=== PATIENT | female | born 1990 | race Caucasian/White ===

== ENCOUNTER 2017-01-26 07:09 | Inpatient (IN) | payer OTHER ==
[~2017-01-26] VITALS: Ht 162.6 cm; Wt 72.7 kg
[2017-01-26 08:05] LABS: BASOPHIL % 0.3 % (0-2); PLATELET COUNT 299 x10^3mcL (130-400); RED CELL DISTRIBUTION WIDTH 12.2 % (11.5-14.5)
[2017-01-26 08:31] LABS: CALCIUM 9.3 mg/dL (8.5-10.1); CARBON DIOXIDE 26.8 mmol/L (21-32); CHLORIDE SERUM 100 mmol/L (98-107); CREATININE SERUM 0.8 mg/dL (0.6-1.0); GFR1 > 60 mL/min; GLUCOSE SERUM 86 mg/dL (74-106); POTASSIUM SERUM 3.8 mmol/L (3.5-5.1); SODIUM SERUM 137 mmol/L (136-145)
[2017-01-26 08:36] LABS: ALBUMIN 4.4 g/dL (3.4-5.0); ALKALINE PHOSPHATASE 40 U/L (46-116); ALT/SGPT 23 U/L (14-59); AST/SGOT 17 U/L (15-37); BILIRUBIN TOTAL 0.53 mg/dL (0.20-1.00)
[2017-01-26 08:39] LABS: TOTAL PROTEIN, SERUM 8.5 g/dL (6.4-8.2)
[2017-01-26 11:05] VITALS: BP 124/73
[2017-01-26 11:07] VITALS: BP 124/73
[2017-01-26 11:40] LABS: MAGNESIUM 2.1 mg/dL (1.8-2.4); PHOSPHOROUS 3.3 mg/dL (2.5-4.9)
[2017-01-26 11:51] VITALS: Ht 162.6 cm; Wt 72.7 kg
[2017-01-26 11:52] LABS: FREE T4 1.1 ng/dL (0.76-1.46); FREE THYROXINE INDEX 3.3 ug/dL (1.4-4.5); T4(THYROXINE) 9.7 ug/dL (4.7-13.3)
[2017-01-26 11:56] LABS: T3 TOTAL 1.35 ng/mL
[2017-01-26 12:37] LABS: microscopic required? NO
[2017-01-26 12:53] LABS: urine erythrocyte NEGATIVE (NEGATIVE)
[2017-01-26 13:15] LABS: AMPHETAMINE QUAL UR NONE DETECTED (NEG <=1000)
[2017-01-26 13:35] VITALS: BP 132/71
[2017-01-26 16:18] VITALS: BP 126/81
[2017-01-26 21:50] VITALS: BP 109/76
[2017-01-27 05:57] VITALS: BP 116/82
[2017-01-27 07:50] VITALS: BP 109/62
[2017-01-27 12:30] VITALS: BP 117/81
[2017-01-27 17:00] VITALS: BP 11/64; BP 111/64
[2017-01-27 21:17] VITALS: BP 112/80
[2017-01-28 05:46] VITALS: BP 104/55
[2017-01-28 06:16] LABS: BASOPHIL % 0.4 % (0-2); PLATELET COUNT 250 x10^3mcL (130-400); RED CELL DISTRIBUTION WIDTH 12.7 % (11.5-14.5)
[2017-01-28 06:26] LABS: CALCIUM 8.2 mg/dL (8.5-10.1); CARBON DIOXIDE 28.8 mmol/L (21-32); CHLORIDE SERUM 107 mmol/L (98-107); CREATININE SERUM 0.6 mg/dL (0.6-1.0); GFR1 > 60 mL/min; GLUCOSE SERUM 93 mg/dL (74-106); POTASSIUM SERUM 3.8 mmol/L (3.5-5.1); SODIUM SERUM 141 mmol/L (136-145)
[2017-01-28 08:55] VITALS: BP 135/84
[2017-01-28] MEDS ORDERED: APAP/HYDROCODON1 T13 PO (09:20)
[2017-01-28 10:21] VITALS: BP 135/84
== END 2017-01-28 10:58 | disposition home or self-care (01) | DRG 743 ==
LOC: ED 07:09 → DU 10:38
PROVIDERS: Emergency Medicine; Obstetrics & Gynecology; ADMIT Family Medicine
PROC: 0UB60ZZ Excision of Left Fallopian Tube, Open Approach (ICD-10-PCS; 2017-01-26)
PROC: 0UB10ZZ Excision of Left Ovary, Open Approach (ICD-10-PCS; principal; 2017-01-26 13:30)
DX: N83.512 Torsion of left ovary and ovarian pedicle (principal); N83.202 Unspecified ovarian cyst, left side; Z68.27 Body mass index [BMI] 27.0-27.9, adult
CPT/HCPCS: 84439; J0330; J0690; J1170; J1885; J2175; J2250; J2405; J2704; J3010; J3490; J7030; J7120